=== PATIENT | female | born 1940 | race Caucasian/White ===

== ENCOUNTER 2023-06-12 12:10 | Outpatient (CLI) | payer MEDICARE, BC | END 2023-06-12 12:11 | disposition home or self-care (01) | LOC: CSHCP 12:10 | PROVIDERS: ATTEND Internal Medicine Critical Care Medicine | DX: J84.10 Pulmonary fibrosis, unspecified (principal); J98.4 Other disorders of lung | CPT/HCPCS: 94010; 94726; 94729; 94760 ==